=== PATIENT | female | born 1970 | race Caucasian/White ===

== ENCOUNTER → 2017-08-03 | Emergency (ER) | payer OTHER ==
[~2017-08-03] VITALS: Ht 170.2 cm; Wt 93.0 kg
[~2017-08-03] MED LIST: AMBIEN CR6.25 MG/BL PO; BUDEPRION XL300 MG PO; DALMANE15 MG PO
== END | disposition home or self-care (01) ==
LOC: ER 11:02
DX: M79.632 Pain in left forearm (principal); G35 Multiple sclerosis; F06.4 Anxiety disorder due to known physiological condition

== ENCOUNTER 2018-04-26 14:00 | Emergency (ER) | payer OTHER | END 2018-04-26 21:10 | disposition home or self-care (01) | LOC: ER 14:00 | DX: B34.9 Viral infection, unspecified (principal) ==

== ENCOUNTER 2019-03-08 21:42 | Emergency (ER) | payer OTHER ==
[~2019-03-08] VITALS: Ht 170.2 cm; Wt 81.6 kg
[2019-03-08] MEDS ORDERED: NEURONTIN300 MG (21:53)
[2019-03-08] MEDS ORDERED: MICRO-K 1010 MEQ (21:53)
[2019-03-08] MEDS ORDERED: ZOLOFT100 MG (21:53)
[2019-03-08] MEDS ORDERED: FENOFIBRATE145 MG (21:54)
[2019-03-08] MEDS ORDERED: XANAX XR2 MG (21:54)
[2019-03-08] MEDS ORDERED: BACLOFEN10 MG (21:54)
[2019-03-08] MEDS ORDERED: WELLBUTRIN XL300 MG (21:54)
[2019-03-08] MEDS ORDERED: SYNTHROID150 MCG (21:55)
[2019-03-08] MEDS ORDERED: DALMANE30 MG (21:55)
[2019-03-08] MEDS ORDERED: NEURIN (21:55)
[2019-03-08] MEDS ORDERED: SAPHRIS10 MG (21:56)
[2019-03-08] MEDS ORDERED: TRAZODONE HCL150 MG (21:56)
[2019-03-08] MEDS ORDERED: MIGRAINE FORMU1 EACH (21:56)
== END 2019-03-09 03:06 | disposition home or self-care (01) ==
LOC: ER 21:42
DX: R53.1 Weakness (principal); G35 Multiple sclerosis

== ENCOUNTER → 2020-03-11 | Outpatient (CLI) | payer OTHER ==
[~2020-03-11] MED LIST changes: +BACLOFEN10 MG; +DALMANE30 MG; +DALMANE30 MG PO; +FENOFIBRATE145 MG; +FLEXERIL PO; +MICRO-K 1010 MEQ; +MIGRAINE FORMU1 EACH; +NEURIN; +NEURONTIN300 MG; +RELPAX PO; +SAPHRIS10 MG; +SYNTHROID125 MCG PO; +SYNTHROID150 MCG; +TRAZODONE HCL150 MG; +VITAMIN D PO; +WELLBUTRIN XL300 MG; +XANAX XR2 MG; +ZOLOFT100 MG; +ZOMIG PO
== END | disposition home or self-care (01) ==
LOC: RAD 08:18
DX: S63.095A Other dislocation of left wrist and hand, initial encounter (principal)

== ENCOUNTER 2020-03-15 06:30 | Day surgery (SDC) | payer OTHER | END 2020-03-15 14:20 | disposition home or self-care (01) | LOC: CIR.AMB 06:30 | PROVIDERS: ATTEND Orthopaedic Surgery | DX: S52.592A Other fractures of lower end of left radius, initial encounter for closed fracture (principal); M62.432 Contracture of muscle, left forearm; Z20.828 Contact with and (suspected) exposure to other viral communicable diseases | CPT/HCPCS: 25609; 20902; C1776 ==

== ENCOUNTER → 2020-04-07 | Outpatient (CLI) | payer OTHER | END | disposition home or self-care (01) | LOC: RAD 08:06 | PROVIDERS: ATTEND Orthopaedic Surgery | DX: S52.572D Other intraarticular fracture of lower end of left radius, subsequent encounter for closed fracture with routine healing (principal) ==

== ENCOUNTER → 2020-04-07 | Outpatient (CLI) | payer OTHER | END | disposition home or self-care (01) | LOC: RAD 09:57 | PROVIDERS: ATTEND Orthopaedic Surgery | DX: S52.572D Other intraarticular fracture of lower end of left radius, subsequent encounter for closed fracture with routine healing (principal) ==

== ENCOUNTER → 2020-04-28 | Outpatient (CLI) | payer OTHER | END | disposition home or self-care (01) | LOC: MAMO-SONO 04-22 10:57 | PROVIDERS: ATTEND Obstetrics & Gynecology Obstetrics | DX: Z12.31 Encounter for screening mammogram for malignant neoplasm of breast (principal); N60.01 Solitary cyst of right breast; N60.02 Solitary cyst of left breast; R10.2 Pelvic and perineal pain; D25.1 Intramural leiomyoma of uterus ==

== ENCOUNTER 2020-06-02 14:28 | Outpatient (CLI) | payer OTHER | END 2020-06-02 16:30 | disposition home or self-care (01) | LOC: RAD 14:28 | PROVIDERS: ATTEND Orthopaedic Surgery | DX: S52.572D Other intraarticular fracture of lower end of left radius, subsequent encounter for closed fracture with routine healing (principal) ==

== ENCOUNTER 2020-08-10 09:25 | Outpatient (CLI) | payer OTHER | END 2020-08-10 15:20 | disposition home or self-care (01) | LOC: LAB 09:25 | PROVIDERS: ATTEND Orthopaedic Surgery | DX: E21.2 Other hyperparathyroidism (principal); E88.89 Other specified metabolic disorders; M85.88 Other specified disorders of bone density and structure, other site; E55.9 Vitamin D deficiency, unspecified; M81.8 Other osteoporosis without current pathological fracture; E56.1 Deficiency of vitamin K ==

== ENCOUNTER 2020-08-22 11:41 | Outpatient (CLI) | payer OTHER | END 2020-08-22 11:43 | disposition home or self-care (01) | LOC: NUCLEAR 11:41 | PROVIDERS: ATTEND Orthopaedic Surgery | DX: M81.0 Age-related osteoporosis without current pathological fracture (principal) ==

== ENCOUNTER → 2020-09-02 | Outpatient (CLI) | payer OTHER | END | disposition home or self-care (01) | LOC: MAMO-SONO 08:00 | PROVIDERS: ATTEND Internal Medicine Endocrinology, Diabetes & Metabolism | DX: Q61.01 Congenital single renal cyst (principal); K76.2 Central hemorrhagic necrosis of liver ==

== ENCOUNTER → 2020-09-12 | Outpatient (CLI) | payer OTHER | END | disposition home or self-care (01) | LOC: RAD 11:50 | PROVIDERS: ATTEND Orthopaedic Surgery | DX: S52.572D Other intraarticular fracture of lower end of left radius, subsequent encounter for closed fracture with routine healing (principal) ==

== ENCOUNTER 2021-03-23 09:40 | Outpatient (CLI) | payer OTHER | END 2021-03-23 09:42 | disposition home or self-care (01) | LOC: PPH VACUNA 09:40 | PROVIDERS: ATTEND Emergency Medicine Pediatric Emergency Medicine | DX: Z23 Encounter for immunization (principal) ==

== ENCOUNTER 2022-03-15 08:53 | Outpatient (CLI) | payer OTHER | END 2022-03-15 16:03 | disposition home or self-care (01) | LOC: RAD 08:53 | PROVIDERS: ATTEND Orthopaedic Surgery | DX: M25.572 Pain in left ankle and joints of left foot (principal) ==

== ENCOUNTER 2022-03-26 12:45 | Outpatient (CLI) | payer OTHER | END 2022-03-26 14:56 | disposition home or self-care (01) | LOC: RAD 12:45 | PROVIDERS: ATTEND Orthopaedic Surgery | DX: M25.572 Pain in left ankle and joints of left foot (principal) ==

== ENCOUNTER 2022-03-26 14:12 | Emergency (ER) | payer OTHER ==
[~2022-03-26] VITALS: Ht 170.2 cm; Wt 99.8 kg
== END 2022-03-26 16:47 | disposition home or self-care (01) ==
LOC: ER 14:12
DX: S82.402A Unspecified fracture of shaft of left fibula, initial encounter for closed fracture (principal); W01.0XXA Fall on same level from slipping, tripping and stumbling without subsequent striking against object, initial encounter; Y92.89 Other specified places as the place of occurrence of the external cause; Y93.89 Activity, other specified; E03.9 Hypothyroidism, unspecified

== ENCOUNTER → 2022-03-29 | Outpatient (CLI) | payer OTHER | END | disposition home or self-care (01) | LOC: TOM 10:08 | PROVIDERS: ATTEND Orthopaedic Surgery | DX: S82.845A Nondisplaced bimalleolar fracture of left lower leg, initial encounter for closed fracture (principal) ==

== ENCOUNTER 2022-04-05 13:10 | Outpatient (CLI) | payer OTHER ==
[2022-04-09] MEDS ORDERED: HYZAAR 50-12.51 EACH PO (14:13)
== END 2022-04-05 13:25 | disposition home or self-care (01) ==
LOC: RAD 13:10
PROVIDERS: ATTEND Orthopaedic Surgery
DX: S82.845A Nondisplaced bimalleolar fracture of left lower leg, initial encounter for closed fracture (principal)

== ENCOUNTER 2022-04-06 06:37 | Outpatient (CLI) | payer OTHER ==
[2022-04-09] MEDS ORDERED: HYZAAR 50-12.51 EACH PO (14:13)
== END 2022-04-06 10:59 | disposition home or self-care (01) ==
LOC: TOM 06:37
PROVIDERS: ATTEND Orthopaedic Surgery
DX: M25.572 Pain in left ankle and joints of left foot (principal)

== ENCOUNTER 2022-04-10 06:22 | Day surgery (SDC) | payer OTHER ==
[~2022-04-10] VITALS: Ht 170.2 cm; Wt 99.8 kg
[~2022-04-10 06:22] MED LIST changes: +HYZAAR 50-12.51 EACH PO
== END 2022-04-10 12:50 | disposition home or self-care (01) ==
LOC: CIR.AMB 06:22 → EDSTATUS 09:00 → CIR.AMB 09:00 → SURG 09:00 → CIR.AMB 12:50
PROVIDERS: ATTEND Orthopaedic Surgery
DX: S82.62XA Displaced fracture of lateral malleolus of left fibula, initial encounter for closed fracture (principal); Z20.822 Contact with and (suspected) exposure to COVID-19; Z86.16 Personal history of COVID-19; Z71.6 Tobacco abuse counseling; F17.210 Nicotine dependence, cigarettes, uncomplicated; E03.9 Hypothyroidism, unspecified; G35 Multiple sclerosis; G43.909 Migraine, unspecified, not intractable, without status migrainosus

== ENCOUNTER 2022-04-26 08:03 | Outpatient (CLI) | payer OTHER | END 2022-04-26 15:21 | disposition home or self-care (01) | LOC: RAD 08:03 | PROVIDERS: ATTEND Orthopaedic Surgery | DX: S82.852D Displaced trimalleolar fracture of left lower leg, subsequent encounter for closed fracture with routine healing (principal) ==

== ENCOUNTER 2022-05-31 13:32 | Outpatient (CLI) | payer OTHER | END 2022-05-31 13:50 | disposition home or self-care (01) | LOC: RAD 13:32 | PROVIDERS: ATTEND Orthopaedic Surgery | DX: S82.852D Displaced trimalleolar fracture of left lower leg, subsequent encounter for closed fracture with routine healing (principal) ==

== ENCOUNTER 2023-01-01 08:45 | Outpatient (CLI) | payer OTHER | END 2023-01-01 10:55 | disposition home or self-care (01) | LOC: RAD 08:45 | PROVIDERS: ATTEND Specialist | DX: S60.921A Unspecified superficial injury of right hand, initial encounter (principal); S69.91XA Unspecified injury of right wrist, hand and finger(s), initial encounter ==

== ENCOUNTER 2023-09-11 10:38 | Outpatient (CLI) | payer OTHER | END 2023-09-11 15:25 | disposition home or self-care (01) | LOC: RAD 10:38 | PROVIDERS: ATTEND Orthopaedic Surgery | DX: S63.284A Dislocation of proximal interphalangeal joint of right ring finger, initial encounter (principal) ==

== ENCOUNTER 2023-12-31 10:08 | Outpatient (CLI) | payer OTHER | END 2023-12-31 11:00 | disposition home or self-care (01) | LOC: MRI 10:08 | DX: G35 Multiple sclerosis (principal) | CPT/HCPCS: 70553; 72142 ==

== ENCOUNTER → 2024-05-18 | Outpatient (CLI) | payer OTHER | END | disposition home or self-care (01) | LOC: RAD 09:04 | DX: J20.8 Acute bronchitis due to other specified organisms (principal) ==

== ENCOUNTER 2024-07-23 10:58 | Outpatient (CLI) | payer OTHER | END 2024-07-23 11:10 | disposition home or self-care (01) | LOC: TOM 10:58 | PROVIDERS: ATTEND Internal Medicine | DX: M79.604 Pain in right leg (principal); Z87.891 Personal history of nicotine dependence ==